=== PATIENT | female | born 1985 | race Caucasian/White ===

== ENCOUNTER 2024-04-02 07:40 | Emergency (ER) | payer OTHER ==
[2024-04-02] MEDS: Ondansetron 4 MG/2 ML SDV IVPUSH ONE (08:46)
[2024-04-02] MEDS: Sodium Chloride 0.9% 1,000 ML IV ONE (08:46)
[2024-04-02] MEDS: Ketorolac 30 MG/ML SDV IVPUSH ONE (08:46)
[2024-04-02] MEDS: Sodium Chloride 0.9% 2.5 ML Syringe FLUSH PRN (08:48)
[2024-04-02] MEDS: Sodium Chloride 0.9% 10 ML Syringe FLUSH PRN (08:48)
[2024-04-02 09:00] LABS: BASOPHILS ABSOLUTE AUTO 0.02 K/uL (0.00-0.20); BASOPHILS PERCENT AUTO 0.4 % (0.0-1.0); EOSINOPHILS ABSOLUTE AUTO 0.17 K/uL (0.00-0.45); EOSINOPHILS PERCENT AUTO 3.1 % (0.0-6.0); HEMOGLOBIN 12.9 g/dL (12.0-16.0); IMMATURE GRAN ABSOLUTE AUTO 0.01 K/uL (0.00-0.05); IMMATURE GRAN PERCENT AUTO 0.2 % (0.0-0.4); LYMPHOCYTES ABSOLUTE AUTO 2.45 K/uL (1.00-4.80); MEAN CORPUSCULAR HGB CONC 33.1 g/dL (32.0-36.0); MEAN CORPUSCULAR VOLUME 87.6 fL (83.0-99.0); MEAN PLATELET VOLUME 11.2 fL (9.4-12.3); MONOCYTES ABSOLUTE AUTO 0.33 K/uL (0.00-0.80); MONOCYTES PERCENT AUTO 6.1 % (0.0-8.0); NEUTROPHILS ABSOLUTE AUTO 2.46 K/uL (1.80-7.70); NEUTROPHILS PERCENT AUTO 45.2 % (41.0-71.0); PLATELET COUNT,PLT 277 K/uL (150-400); RED BLOOD CELL COUNT 4.45 M/uL (4.10-5.30); WHITE BLOOD CELL COUNT,WBC 5.44 K/uL (3.9-11.3)
[2024-04-02 09:26] LABS: A/G RATIO 0.8 (0.9-1.6); ALBUMIN 3.4 g/dL (3.4-5.0); BILIRUBIN TOTAL 0.2 mg/dL (0.2-1.0); CALCIUM 8.8 mg/dL (8.5-10.1); CARBON DIOXIDE,CO2 27.5 mmol/L (21.0-32.0); CREATININE 0.8 mg/dL (0.6-1.0); EST CRCL DRUG DOSING (CG) 73.36 mL/min; PROTEIN TOTAL,TP 7.6 g/dL (6.4-8.2)
[2024-04-02] MEDS ORDERED: Naloxone 0.4 MG/ML SDV IVPUSH PRN (09:29)
[2024-04-02] MEDS: Morphine 4 MG/ML Syringe IVPUSH PRN (09:40)
[2024-04-02 10:01] LABS: BILIRUBIN,URINE NEGATIVE (NEGATIVE); GLUCOSE,URINE NEGATIVE (NEGATIVE); KETONES,URINE NEGATIVE (NEGATIVE); LEUKOCYTE ESTERASE,URINE NEGATIVE (NEGATIVE); NITRITE,URINE NEGATIVE (NEGATIVE); OCCULT BLOOD,URINE NEGATIVE (NEGATIVE); PH,URINE 6.5 (5.0-8.0); PROTEIN,URINE NEGATIVE (NEGATIVE); UROBILINOGEN,URINE 0.2 EU/dL (<2.0)
[2024-04-02 10:03] LABS: APPEARANCE,URINE CLEAR; COLOR,URINE DARK YELLOW
[2024-04-02] MEDS: Iopamidol 755 MG/ML 500 ML Multipack Bottle IVPUSH STA (10:16)
[2024-04-02 10:44] LABS: BACTERIA,URINE FEW (NEGATIVE); EPITHELIAL CELLS,URINE FEW (NONE-FEW); MUCUS,URINE FEW (NONE-MOD); RBC,URINE 0-1 (0-2/HPF); WBC,URINE 0-2 (0-5/HPF)
== END 2024-04-02 11:35 | disposition left against medical advice (07) ==
LOC: MW.ED 07:40
DX: R10.31 Right lower quadrant pain (principal); Z88.0 Allergy status to penicillin
CPT/HCPCS: 36415; 74177; 80053; 81001; 81025; 83690; 85025; 96361; 96374; 96375; 99284; J1885; J2270; J2405; J3490; J7030; Q9967

== ENCOUNTER 2024-06-08 09:49 | Emergency (ER) | payer OTHER ==
[2024-06-08 10:39] LABS: CORONAVIRUS COVID-19 NAA NEGATIVE (NEGATIVE); INFLUENZA A NAA NEGATIVE (NEGATIVE); INFLUENZA B NAA NEGATIVE (NEGATIVE); RESPIRATORY SYNCYTIAL VIR NAA NEGATIVE (NEGATIVE)
[2024-06-08] MEDS: Acetaminophen/Codeine 120-12 MG/5 ML Soln 5 ML UD Cup PO ONE (10:44)
[2024-06-08] MEDS: Sodium Chloride 0.9% 1,000 ML IV ONE (10:47)
== END 2024-06-08 12:04 | disposition home or self-care (01) ==
LOC: MW.ED 09:49
DX: J32.9 Chronic sinusitis, unspecified (principal); E03.9 Hypothyroidism, unspecified; Z79.899 Other long term (current) drug therapy; Z75.8 Other problems related to medical facilities and other health care
CPT/HCPCS: 0241U; 71045; 99285; A9270

== ENCOUNTER 2024-09-29 10:33 | Emergency (ER) | payer OTHER ==
[2024-09-29] MEDS ORDERED: Sodium Chloride 0.9% 2.5 ML Syringe FLUSH PRN (10:58)
[2024-09-29] MEDS ORDERED: Sodium Chloride 0.9% 10 ML Syringe FLUSH PRN (10:58)
[2024-09-29] MEDS: Diazepam 2 MG Tab PO ONE (11:09)
[2024-09-29] MEDS: Lidocaine 4% 1 each Patch TOP ONE (11:10)
[2024-09-29] MEDS: Ketorolac 30 MG/ML SDV IVPUSH ONE (11:11)
[2024-09-29 11:26] LABS: BASOPHILS ABSOLUTE AUTO 0.04 K/uL (0.00-0.20); BASOPHILS PERCENT AUTO 0.5 % (0.0-1.0); EOSINOPHILS ABSOLUTE AUTO 0.16 K/uL (0.00-0.45); HEMATOCRIT 40.5 % (37.0-47.0); HEMOGLOBIN 13.7 g/dL (12.0-16.0); IMMATURE GRAN ABSOLUTE AUTO 0.03 K/uL (0.00-0.05); IMMATURE GRAN PERCENT AUTO 0.4 % (0.0-0.4); LYMPHOCYTES ABSOLUTE AUTO 2.65 K/uL (1.00-4.80); LYMPHOCYTES PERCENT AUTO 33.7 % (24.0-44.0); MEAN CORPUSCULAR HEMOGLOBIN 29.4 pg (28.0-32.0); MEAN CORPUSCULAR HGB CONC 33.8 g/dL (32.0-36.0); MEAN CORPUSCULAR VOLUME 86.9 fL (83.0-99.0); MEAN PLATELET VOLUME 10.7 fL (9.4-12.3); MONOCYTES PERCENT AUTO 5.1 % (0.0-8.0); NEUTROPHILS ABSOLUTE AUTO 4.58 K/uL (1.80-7.70); NEUTROPHILS PERCENT AUTO 58.3 % (41.0-71.0); PLATELET COUNT,PLT 290 K/uL (150-400); RED BLOOD CELL COUNT 4.66 M/uL (4.10-5.30); WHITE BLOOD CELL COUNT,WBC 7.86 K/uL (3.9-11.3)
[2024-09-29 11:49] LABS: A/G RATIO 0.9 (0.9-1.6); ALBUMIN 3.8 g/dL (3.4-5.0); BILIRUBIN TOTAL 0.4 mg/dL (0.2-1.0); CALCIUM 9.1 mg/dL (8.5-10.1); CARBON DIOXIDE,CO2 27.8 mmol/L (21.0-32.0); CREATININE 0.8 mg/dL (0.6-1.0); EST CRCL DRUG DOSING (CG) 72.65 mL/min; POTASSIUM,K 4.2 mmol/L (3.5-5.1); PROTEIN TOTAL,TP 7.9 g/dL (6.4-8.2)
[2024-09-29 12:18] LABS: APPEARANCE,URINE CLEAR; BILIRUBIN,URINE NEGATIVE (NEGATIVE); COLOR,URINE YELLOW; GLUCOSE,URINE NEGATIVE (NEGATIVE); KETONES,URINE NEGATIVE (NEGATIVE); LEUKOCYTE ESTERASE,URINE NEGATIVE (NEGATIVE); NITRITE,URINE NEGATIVE (NEGATIVE); OCCULT BLOOD,URINE NEGATIVE (NEGATIVE); PROTEIN,URINE NEGATIVE (NEGATIVE); UROBILINOGEN,URINE 0.2 EU/dL (<2.0)
== END 2024-09-29 13:07 ==
LOC: MW.ED 10:33
DX: M54.50 Low back pain, unspecified (principal); M62.81 Muscle weakness (generalized); E03.9 Hypothyroidism, unspecified; Z88.0 Allergy status to penicillin; Z79.890 Hormone replacement therapy; Z75.8 Other problems related to medical facilities and other health care
CPT/HCPCS: 36415; 72131; 80053; 81003; 85025; 96374; 99285; A9270; J1885; 99284

== ENCOUNTER 2025-06-16 06:27 | Emergency (ER) | payer SELFPAY ==
[2025-06-16] MEDS ORDERED: Sodium Chloride 0.9% 2.5 ML Syringe FLUSH PRN (06:40)
[2025-06-16] MEDS ORDERED: Sodium Chloride 0.9% 10 ML Syringe FLUSH PRN (06:40)
[2025-06-16 07:04] LABS: BASOPHILS ABSOLUTE AUTO 0.03 K/uL (0.00-0.20); BASOPHILS PERCENT AUTO 0.5 % (0.0-1.0); EOSINOPHILS ABSOLUTE AUTO 0.16 K/uL (0.00-0.45); EOSINOPHILS PERCENT AUTO 2.4 % (0.0-6.0); IMMATURE GRAN ABSOLUTE AUTO 0.01 K/uL (0.00-0.05); IMMATURE GRAN PERCENT AUTO 0.2 % (0.0-0.4); LYMPHOCYTES ABSOLUTE AUTO 2.96 K/uL (1.00-4.80); LYMPHOCYTES PERCENT AUTO 45.1 % (24.0-44.0); MEAN PLATELET VOLUME 10.9 fL (9.4-12.3); MONOCYTES ABSOLUTE AUTO 0.42 K/uL (0.00-0.80); MONOCYTES PERCENT AUTO 6.4 % (0.0-8.0); NEUTROPHILS ABSOLUTE AUTO 2.98 K/uL (1.80-7.70); NEUTROPHILS PERCENT AUTO 45.4 % (41.0-71.0); NRBC ABSOLUTE 0.00 K/uL (0.00-0.02); NRBC PERCENT 0.0 /100WBC (0.0-0.2); PLATELET COUNT,PLT 255 K/uL (150-400); RED BLOOD CELL COUNT 4.54 M/uL (4.10-5.30); WHITE BLOOD CELL COUNT,WBC 6.56 K/uL (3.9-11.3)
[2025-06-16 07:20] LABS: A/G RATIO 0.9 (0.9-1.6); ALANINE AMINOTRANSFERASE,ALT 20.0 IU/L (14-63); ASPARTATE AMNIOTRANSFERASE,AST 7.0 IU/L (15-37); BILIRUBIN TOTAL 0.1 mg/dL (0.2-1.0); BLOOD UREA NITROGEN,BUN 16.0 mg/dL (7.0-18.0); CARBON DIOXIDE,CO2 25.8 mmol/L (21.0-32.0); CHLORIDE,CL 104.0 mmol/L (98-107); CREATININE 0.8 mg/dL (0.6-1.0); EST CRCL DRUG DOSING (CG) 103.11 mL/min; GLUCOSE RANDOM 94.0 mg/dL (74-106); POTASSIUM,K 4.3 mmol/L (3.5-5.1); PROTEIN TOTAL,TP 7.7 g/dL (6.4-8.2); SODIUM,NA 139.0 mmol/L (136-145)
[2025-06-16 07:22] LABS: APPEARANCE,URINE CLEAR; GLUCOSE,URINE NEGATIVE (NEGATIVE); OCCULT BLOOD,URINE NEGATIVE (NEGATIVE)
[2025-06-16 07:22] LABS: ESTIMATED GFR 97.0 mL/min (>60)
== END 2025-06-16 09:12 | disposition home or self-care (01) ==
LOC: MW.ED 06:27
DX: S30.0XXA Contusion of lower back and pelvis, initial encounter (principal); E03.9 Hypothyroidism, unspecified; F17.200 Nicotine dependence, unspecified, uncomplicated; Z88.0 Allergy status to penicillin; Z79.890 Hormone replacement therapy; W10.8XXA Fall (on) (from) other stairs and steps, initial encounter
CPT/HCPCS: 36415; 70450; 72125; 72128; 72131; 72170; 80053; 81003; 83735; 84703; 85025; 96374; 96376; 99284; A9270; J3360

== ENCOUNTER 2025-08-21 12:21 | Emergency (ER) | payer SELFPAY ==
[2025-08-21] MEDS: Fluorescein 1 MG Ophth Strip EYEBOTH ONE (12:45)
[2025-08-21] MEDS: Tetracaine HCl/PF 0.5% 4 ML Bottle EYEBOTH ONE (12:45)
== END 2025-08-21 13:53 | disposition home or self-care (01) ==
LOC: MW.ED 12:21
DX: T15.91XA Foreign body on external eye, part unspecified, right eye, initial encounter (principal); E03.9 Hypothyroidism, unspecified; Z88.0 Allergy status to penicillin; Z79.890 Hormone replacement therapy; Z79.899 Other long term (current) drug therapy; W44.8XXA Other foreign body entering into or through a natural orifice, initial encounter; Y93.89 Activity, other specified
CPT/HCPCS: 99283; J3490